=== PATIENT | female | born 1930 | race African-American/Black ===

== ENCOUNTER 2016-08-05 16:39 | Inpatient (IN) | payer MEDICARE, MEDICAID ==
[~2016-08-05] VITALS: Ht 152.4 cm; Wt 65.8 kg
[~2016-08-05 16:39] MED LIST: FOLI-43 PO; OLOP2.5D BOTHEYE; PROP1TAB PO; ROSU10TA PO; TIMO15DR12 BOTHEYE; TRAV2.5D BOTHEYE
[2016-08-05] MEDS ORDERED: MORPHINE SULFATE 4 MG/ML CPJ (NOT FOR IM USE) IV STA (17:33)
[2016-08-05] MEDS ORDERED: ONDANSETRON HCL 4MG/2ML VIAL IV STA (17:33)
[2016-08-05] MEDS ORDERED: FAMOTIDINE 20MG/2ML VIAL IV STA (17:33)
[2016-08-05] MEDS ORDERED: HYDRALAZINE (NEO) 1MG/ML IV ONE (17:45)
[2016-08-05 18:07] LABS: BASOPHILS % 0.7 % (0.0-2.0); EOSINOPHILS % 0.1 % (0.0-5.0); HEMATOCRIT. 38.1 % (36.0-48.0); HEMOGLOBIN. 12.6 g/dL (12.0-16.0); LYMPHOCYTES % 24.5 % (20.0-50.0); MEAN CORPUSCULAR HEMOGLOBIN 28.2 pg (28.0-32.0); MEAN CORPUSCULAR HGB CONC 33.1 g/dL (31.0-37.0); MEAN CORPUSCULAR VOLUME 85.3 fL (81.0-99.0); MEAN PLATELET VOLUME 10.1 fl (7.4-10.4); MONOCYTES % 7.2 % (2.0-8.0); NEUTROPHILS % 67.5 % (40.0-76.0); PLATELET 184 x1000/uL (130-400); RED BLOOD CELL COUNT 4.47 mill/uL (4.2-5.4); RED CELL DISTRIBUTION WIDTH 15.3 % (11.6-14.6); WHITE BLOOD COUNT 6.7 x1000/uL (4.5-11.0)
[2016-08-05 18:08] LABS: CLARITY URINE CLOUDY (CLEAR); COLOR URINE YELLOW (YELLOW); GLUCOSE URINE NEGATIVE (NEGATIVE); KETONES URINE 2+ (NEGATIVE); LEUKOCYTE ESTERASE URINE 2+ (NEGATIVE); NITRITE URINE NEGATIVE (NEGATIVE); OCCULT BLOOD URINE NEGATIVE (NEGATIVE); PROTEIN URINE TRACE (NEGATIVE); SPECIFIC GRAVITY URINE 1.021 (1.005-1.030); UROBILINOGEN URINE 0.2 E.U./dL (0.2-1.0)
[2016-08-05] MEDS ORDERED: HYDRALAZINE 20MG/ML VIAL IV NR (18:15)
[2016-08-05 18:17] LABS: ALBUMIN 3.1 g/dL (3.4-5.0); ANION GAP 13; CALCIUM 8.4 mg/dL (8.5-10.1); CARBON DIOXIDE 26 mEq/L (21-32); CHLORIDE 102 mEq/L (98-107); INDEX HEMOLYSI 3 (1-3); INDEX ICTERIC 1 (1-4); INDEX LIPEMIC 1 (1-3); INR 1.1; LIPASE 92 IU/L (73-393); PARTIAL THROMBOPLASTIN TIME 25.5 sec (24.0-34.0); PROTHROMBIN TIME 11.9 sec; UREA NITROGEN BLOOD 13 mg/dL (7-21)
[2016-08-05 18:18] LABS: ALANINE AMINOTRANSFERASE 19 IU/L (13-61); eGFR > 60 mL/min (>60)
[2016-08-05 18:22] LABS: TROPONIN I < 0.02 ng/mL (0.00-0.04)
[2016-08-05 18:29] LABS: BACTERIA URINE 1+; RBC URINE 0-2 /hpf (0-2); SQUAMOUS EPITHELIAL CELL URINE 1+ /lpf (RARE/1+)
[2016-08-05 18:31] LABS: TRICHOMONAS URINE FEW
[2016-08-06] VITALS (7 sets, daily range): BP systolic 113–167; BP diastolic 62–93
[2016-08-06] MEDS ORDERED: ONDANSETRON HCL 4MG/2ML VIAL IV PRN (01:30)
[2016-08-06] MEDS ORDERED: CLONIDINE 0.1MG TABLET PO PRN (01:30)
[2016-08-06] MEDS ORDERED: ACETAMINOPHEN 325MG TABLET PO PRN (01:30)
[2016-08-06] MEDS ORDERED: LEVOFLOXACIN 500MG PREMIX 100 ML IV NR ×2 (04:00→05:05)
[2016-08-06 06:03] LABS: HEMATOCRIT. 35.8 % (36.0-48.0); HEMOGLOBIN. 11.8 g/dL (12.0-16.0); MEAN CORPUSCULAR HEMOGLOBIN 28.3 pg (28.0-32.0); MEAN CORPUSCULAR HGB CONC 33.1 g/dL (31.0-37.0); MEAN CORPUSCULAR VOLUME 85.5 fL (81.0-99.0); PLATELET 167 x1000/uL (130-400); RED BLOOD CELL COUNT 4.19 mill/uL (4.2-5.4); RED CELL DISTRIBUTION WIDTH 15.3 % (11.6-14.6); WHITE BLOOD COUNT 7.6 x1000/uL (4.5-11.0)
[2016-08-06 06:33] LABS: ANION GAP 13; CALCIUM 8.2 mg/dL (8.5-10.1); CARBON DIOXIDE 26 mEq/L (21-32); CHLORIDE 102 mEq/L (98-107); INDEX HEMOLYSI 1 (1-3); INDEX ICTERIC 1 (1-4); INDEX LIPEMIC 1 (1-3); UREA NITROGEN BLOOD 14 mg/dL (7-21); eGFR > 60 mL/min (>60)
[2016-08-06 07:31] LABS: ANISOCYTOSIS 1+; PLATELET ESTIMATE NORMAL
[2016-08-06] MEDS: LACTOBACILLUS GG CAPSULE PO SCH (09:21)
[2016-08-06] MEDS: ENOXAPARIN 30MG/0.3ML SYR SUBCUT SCH (09:23)
[2016-08-06] MEDS: NEBIVOLOL HCL 5 MG TABLET PO SCH (10:00)
[2016-08-06] MEDS ORDERED: ROSU10TA PO (17:48)
[2016-08-06] MEDS ORDERED: ZOLPIDEM TARTRATE 5MG TABLET PO PRN (20:30)
[2016-08-06] MEDS ORDERED: NEBI20TA2 PO (20:36)
[2016-08-06] MEDS ORDERED: CHOL100046 PO (20:36)
[2016-08-06] MEDS: ATORVASTATIN CALCIUM 20MG TABLET PO SCH (21:21)
[2016-08-07] VITALS (7 sets, daily range): BP systolic 127–166; BP diastolic 71–98
[2016-08-07] MEDS: LEVOFLOXACIN 250MG PREMIX 50 ML IV SCH (04:55)
[2016-08-07 06:50] LABS: BASOPHILS % 0.7 % (0.0-2.0); EOSINOPHILS % 2.1 % (0.0-5.0); HEMATOCRIT. 36.8 % (36.0-48.0); HEMOGLOBIN. 12.4 g/dL (12.0-16.0); LYMPHOCYTES % 37.6 % (20.0-50.0); MEAN CORPUSCULAR HEMOGLOBIN 28.6 pg (28.0-32.0); MEAN CORPUSCULAR HGB CONC 33.7 g/dL (31.0-37.0); MEAN CORPUSCULAR VOLUME 84.7 fL (81.0-99.0); MEAN PLATELET VOLUME 9.6 fl (7.4-10.4); MONOCYTES % 14.5 % (2.0-8.0); NEUTROPHILS % 45.1 % (40.0-76.0); PLATELET 173 x1000/uL (130-400); RED BLOOD CELL COUNT 4.34 mill/uL (4.2-5.4); RED CELL DISTRIBUTION WIDTH 15.1 % (11.6-14.6); WHITE BLOOD COUNT 5.1 x1000/uL (4.5-11.0)
[2016-08-07 07:44] LABS: ANION GAP 11; CALCIUM 8.2 mg/dL (8.5-10.1); CARBON DIOXIDE 28 mEq/L (21-32); CHLORIDE 105 mEq/L (98-107); INDEX HEMOLYSI 1 (1-3); INDEX ICTERIC 1 (1-4); INDEX LIPEMIC 1 (1-3); UREA NITROGEN BLOOD 13 mg/dL (7-21); eGFR > 60 mL/min (>60)
[2016-08-07] MEDS ORDERED: MEDICATION NOT ON FORMULARY EA (Rosuvastatin Calcium (Crestor) 10 MG) PO SCH (09:00)
[2016-08-07] MEDS: NEBIVOLOL HCL 5 MG TABLET PO SCH ×2 (09:00→22:36)
[2016-08-07] MEDS: LACTOBACILLUS GG CAPSULE PO SCH (09:38)
[2016-08-07] MEDS: ENOXAPARIN 30MG/0.3ML SYR SUBCUT SCH (09:38)
[2016-08-07] MEDS: CLONIDINE 0.1MG TABLET PO PRN (17:41)
[2016-08-07] MEDS: ATORVASTATIN CALCIUM 20MG TABLET PO SCH (22:35)
[2016-08-08] VITALS: BP 124/67
[2016-08-08] MEDS: LEVOFLOXACIN 250MG PREMIX 50 ML IV SCH (03:26)
[2016-08-08 04:00] VITALS: BP 150/81
[2016-08-08] MEDS: CLONIDINE 0.1MG TABLET PO PRN (07:01)
[2016-08-08 08:08] VITALS: BP 137/91
[2016-08-08] MEDS: NEBIVOLOL HCL 5 MG TABLET PO SCH ×2 (09:00→09:47)
[2016-08-08] MEDS: LACTOBACILLUS GG CAPSULE PO SCH (09:42)
[2016-08-08] MEDS: ENOXAPARIN 30MG/0.3ML SYR SUBCUT SCH (09:48)
[2016-08-08 12:00] VITALS: BP 124/73
[2016-08-08 16:00] VITALS: BP 147/97
[2016-08-08] MEDS: CEFTRIAXONE 1 G PREMIX 50 ML IV SCH (18:25)
[2016-08-08 20:00] VITALS: BP 132/71
[2016-08-08] MEDS: ATORVASTATIN CALCIUM 20MG TABLET PO SCH (20:53)
[2016-08-09] VITALS: BP 147/87
[2016-08-09 04:00] VITALS: BP 158/98
[2016-08-09 07:23] LABS: HEMATOCRIT. 36.3 % (36.0-48.0); HEMOGLOBIN. 12.1 g/dL (12.0-16.0); MEAN CORPUSCULAR HEMOGLOBIN 28.1 pg (28.0-32.0); MEAN CORPUSCULAR HGB CONC 33.4 g/dL (31.0-37.0); MEAN CORPUSCULAR VOLUME 84.1 fL (81.0-99.0); MEAN PLATELET VOLUME 9.7 fl (7.4-10.4); PLATELET 164 x1000/uL (130-400); RED BLOOD CELL COUNT 4.32 mill/uL (4.2-5.4); RED CELL DISTRIBUTION WIDTH 15.3 % (11.6-14.6); WHITE BLOOD COUNT 4.2 x1000/uL (4.5-11.0)
[2016-08-09 07:31] LABS: CHLORIDE 103 mEq/L (98-107); INDEX HEMOLYSI 1 (1-3); INDEX ICTERIC 1 (1-4); INDEX LIPEMIC 1 (1-3)
[2016-08-09 07:36] LABS: ANION GAP 12; CARBON DIOXIDE 27 mEq/L (21-32); UREA NITROGEN BLOOD 8 mg/dL (7-21); eGFR > 60 mL/min (>60)
[2016-08-09 07:58] VITALS: BP 155/91
[2016-08-09 08:26] LABS: DIFFERENTIAL COMMENT 1
[2016-08-09] MEDS: CEFTRIAXONE 1 G PREMIX 50 ML IV SCH (08:52)
[2016-08-09] MEDS: LACTOBACILLUS GG CAPSULE PO SCH (08:54)
[2016-08-09] MEDS: ENOXAPARIN 30MG/0.3ML SYR SUBCUT SCH (08:54)
[2016-08-09] MEDS: NEBIVOLOL HCL 5 MG TABLET PO SCH (08:55)
[2016-08-09 10:48] LABS: ANISOCYTOSIS 1+; PLATELET ESTIMATE NORMAL
[2016-08-09 11:42] VITALS: BP 143/88
[2016-08-09 12:44] VITALS: BP 138/82
== END 2016-08-09 13:30 | disposition home or self-care (01) | DRG 392 ==
LOC: ER 16:39 → 6WST 18:36
PROVIDERS: ADMIT Internal Medicine; ATTEND Internal Medicine
DX: K52.9 Noninfective gastroenteritis and colitis, unspecified (principal); N39.0 Urinary tract infection, site not specified; J84.9 Interstitial pulmonary disease, unspecified; E44.0 Moderate protein-calorie malnutrition; I11.9 Hypertensive heart disease without heart failure; M06.9 Rheumatoid arthritis, unspecified; K57.90 Diverticulosis of intestine, part unspecified, without perforation or abscess without bleeding; H40.9 Unspecified glaucoma; F03.90 Unspecified dementia, unspecified severity, without behavioral disturbance, psychotic disturbance, mood disturbance, and anxiety; I51.7 Cardiomegaly; K57.30 Diverticulosis of large intestine without perforation or abscess without bleeding; N28.1 Cyst of kidney, acquired; E55.9 Vitamin D deficiency, unspecified; G43.909 Migraine, unspecified, not intractable, without status migrainosus; Z87.01 Personal history of pneumonia (recurrent); Z88.8 Allergy status to other drugs, medicaments and biological substances; Z88.0 Allergy status to penicillin
CPT/HCPCS: 36415; 71010; 74176; 80048; 80053; 81001; 83690; 84484; 85007; 85025; 85027; 85610; 85651; 85730; 87015; 87045; 87077; 87086; 87427; 87449; 87493; 89055; 93005; 96374; 96375; 97116; 97162; 99285; C1893; J0360; J0696; J1650; J1956; J2270; J2405; J3490; J7040

== ENCOUNTER 2017-07-18 15:20 | Emergency (ER) | payer MEDICARE, MEDICAID ==
[~2017-07-18] VITALS: Ht 162.6 cm; Wt 66.0 kg
[~2017-07-18 15:20] MED LIST changes: +CHOL100046 PO; -FOLI-43 PO; +NEBI20TA2 PO; -OLOP2.5D BOTHEYE; -PROP1TAB PO; -TIMO15DR12 BOTHEYE; -TRAV2.5D BOTHEYE
[2017-07-18] MEDS ORDERED: ACETAMINOPHEN 325MG TABLET PO STA (17:47)
[2017-07-18] MEDS ORDERED: HYDRALAZINE 20MG/ML VIAL IV ONE (18:00)
[2017-07-18] MEDS ORDERED: NITROGLYCERIN OINT 1GM/INCH UDPKT TD ONE (18:00)
[2017-07-18] MEDS ORDERED: ASPIRIN 81MG TABLET PO ONE (18:00)
[2017-07-18 18:25] LABS: BASOPHILS % 0.8 % (0.0-2.0); EOSINOPHILS % 3.6 % (0.0-5.0); HEMATOCRIT. 37.5 % (36.0-48.0); HEMOGLOBIN. 12.7 g/dL (12.0-16.0); LYMPHOCYTES % 29.1 % (20.0-50.0); MEAN CORPUSCULAR HEMOGLOBIN 28.6 pg (28.0-32.0); MEAN CORPUSCULAR VOLUME 84.6 fL (81.0-99.0); MONOCYTES % 9.6 % (2.0-8.0); NEUTROPHILS % 56.9 % (40.0-76.0); PLATELET 179 x1000/uL (130-400); RED BLOOD CELL COUNT 4.44 mill/uL (4.2-5.4); RED CELL DISTRIBUTION WIDTH 16.1 % (11.6-14.6)
[2017-07-18 18:41] LABS: CHLORIDE 106 mEq/L (98-107); ETHANOL BLOOD < 10 mg/dL; TROPONIN I < 0.02 ng/mL (0.00-0.04)
[2017-07-18 23:25] VITALS: BP 139/80
== END 2017-07-18 23:27 | disposition home or self-care (01) ==
LOC: ER 15:27 → CANBEDREQ 23:27
DX: R41.82 Altered mental status, unspecified (principal); G93.40 Encephalopathy, unspecified; I10 Essential (primary) hypertension; Z88.0 Allergy status to penicillin; Z79.82 Long term (current) use of aspirin; Z91.19 Patient's noncompliance with other medical treatment and regimen
CPT/HCPCS: 36415; 70450; 71045; 80053; 83036; 84484; 85025; 87070; 87430; 87804; 93005; 99285; G0482; J0360; 81003

== ENCOUNTER 2018-12-10 09:12 | Inpatient (IN) | payer MEDICARE, MEDICAID ==
[~2018-12-10] VITALS: Ht 154.9 cm; Wt 55.4 kg
[~2018-12-10 09:12] MED LIST changes: +CRES10 PO; -ROSU10TA PO
[2018-12-10] MEDS ORDERED: NITROGLYCERIN 0.4MG TABLET SL SL PRN (09:45)
[2018-12-10 10:25] LABS: BASOPHILS % 0.5 % (0.0-2.0); EOSINOPHILS % 8.2 % (0.0-5.0); HEMATOCRIT. 37.4 % (36.0-48.0); HEMOGLOBIN. 12.2 g/dL (12.0-16.0); LYMPHOCYTES % 39.8 % (20.0-50.0); MEAN CORPUSCULAR HEMOGLOBIN 26.4 pg (28.0-32.0); MEAN CORPUSCULAR VOLUME 80.6 fL (81.0-99.0); MEAN PLATELET VOLUME 8.8 fl (7.4-10.4); MONOCYTES % 11.1 % (2.0-8.0); NEUTROPHILS % 40.4 % (40.0-76.0); PLATELET 165 x1000/uL (130-400); RED BLOOD CELL COUNT 4.64 mill/uL (4.2-5.4); RED CELL DISTRIBUTION WIDTH 17.8 % (11.6-14.6)
[2018-12-10 10:33] LABS: CHLORIDE 107 mEq/L (98-107)
[2018-12-10] MEDS ORDERED: METHYLPREDNISOLONE SOD SUCC 125 MG/2 ML VIAL IV ONE (12:15)
[2018-12-10] MEDS ORDERED: IOHEXOL-350 100 ML BOTTLE ONE (13:04)
[2018-12-10] MEDS ORDERED: HYDRALAZINE 20MG/ML VIAL IV ONE (14:45)
[2018-12-10 15:15] VITALS: BP 197/113
[2018-12-10 15:34] VITALS: BP 197/113
[2018-12-10] MEDS ORDERED: ALBU18HF2 IH (16:16)
[2018-12-10] MEDS ORDERED: D-ME473S8 PO (16:16)
[2018-12-10] MEDS ORDERED: ALBU2.5V13 NEB (16:16)
[2018-12-10] MEDS ORDERED: OMEP40CA34 MT (16:16)
[2018-12-10] MEDS ORDERED: CRES10 PO (16:16)
[2018-12-10] MEDS ORDERED: CARV25TA47 PO (16:16)
[2018-12-10] MEDS ORDERED: ACETAMINOPHEN 325MG TABLET PO PRN (17:45)
[2018-12-10 20:00] VITALS: BP 161/95
[2018-12-10] MEDS ORDERED: PROMETHAZINE/DEXTROMETHORPHAN 6.25-15MG/5ML BOTTLE 120ML PO PRN (20:00)
[2018-12-10] MEDS: ATORVASTATIN CALCIUM 20MG TABLET PO SCH (20:31)
[2018-12-10] MEDS: OMEPRAZOLE 20MG CAPSULE EXTENDED RELEASE PO SCH (20:32)
[2018-12-10] MEDS: CLONIDINE 0.1MG TABLET PO PRN ×3 (20:33→20:45)
[2018-12-10] MEDS: DOCUSATE SODIUM SUGAR FREE 100MG/10ML UDC PO SCH (20:36)
[2018-12-10] MEDS: CARVEDILOL 25MG TABLET PO SCH (20:42)
[2018-12-10] MEDS ORDERED: MEDICATION NOT ON FORMULARY EA (Rosuvastatin Calcium (Crestor) 1 TAB) MT SCH (21:00)
[2018-12-10] MEDS ORDERED: CEFTRIAXONE SODIUM 1 G/VIAL IV SCH (21:45)
[2018-12-10] MEDS ORDERED: CEFTRIAXONE 1 G PREMIX 50 ML IV NR (22:00)
[2018-12-11] VITALS: BP 111/64
[2018-12-11] MEDS ORDERED: POTASSIUM CHLORIDE 20MEQ TABLET SR PO NR
[2018-12-11 04:00] VITALS: BP 124/60
[2018-12-11] MEDS: OMEPRAZOLE 20MG CAPSULE EXTENDED RELEASE PO SCH ×2 (06:43→16:25)
[2018-12-11 08:00] VITALS: BP 136/69
[2018-12-11] MEDS: CARVEDILOL 25MG TABLET PO SCH ×2 (09:00→21:00)
[2018-12-11] MEDS: ENOXAPARIN 30MG/0.3ML SYR SUBCUT SCH (09:40)
[2018-12-11] MEDS: DOCUSATE SODIUM SUGAR FREE 100MG/10ML UDC PO SCH (09:41)
[2018-12-11 10:08] LABS: BASOPHILS % 0.2 % (0.0-2.0); HEMATOCRIT. 35.2 % (36.0-48.0); HEMOGLOBIN. 11.6 g/dL (12.0-16.0); LYMPHOCYTES % 10.3 % (20.0-50.0); MEAN CORPUSCULAR HEMOGLOBIN 26.6 pg (28.0-32.0); MEAN CORPUSCULAR VOLUME 80.7 fL (81.0-99.0); MONOCYTES % 5.1 % (2.0-8.0); NEUTROPHILS % 84.4 % (40.0-76.0); PLATELET 190 x1000/uL (130-400); RED BLOOD CELL COUNT 4.37 mill/uL (4.2-5.4); RED CELL DISTRIBUTION WIDTH 17.6 % (11.6-14.6)
[2018-12-11 10:18] LABS: CHLORIDE 104 mEq/L (98-107)
[2018-12-11 10:24] LABS: PHOSPHORUS 3.1 mg/dL (2.5-4.9)
[2018-12-11 12:00] VITALS: BP 110/57
[2018-12-11 16:00] VITALS: BP 168/84
[2018-12-11] MEDS: CLONIDINE 0.1MG TABLET PO PRN (16:32)
[2018-12-11] MEDS: ALBUTEROL (0.083%) 2.5MG/3ML NEB HHN PRN ×2 (17:14→21:49)
[2018-12-11 20:00] VITALS: BP 134/68
[2018-12-11] MEDS: CEFTRIAXONE 1 G PREMIX 50 ML IV SCH (20:57)
[2018-12-11] MEDS: ATORVASTATIN CALCIUM 20MG TABLET PO SCH (21:00)
[2018-12-12] VITALS (10 sets, daily range): BP systolic 102–175; BP diastolic 60–92
[2018-12-12 06:29] LABS: BASOPHILS % 0.3 % (0.0-2.0); EOSINOPHILS % 1.1 % (0.0-5.0); HEMOGLOBIN. 10.4 g/dL (12.0-16.0); LYMPHOCYTES % 30.7 % (20.0-50.0); MEAN CORPUSCULAR VOLUME 80.1 fL (81.0-99.0); MEAN PLATELET VOLUME 9.7 fl (7.4-10.4); MONOCYTES % 8.6 % (2.0-8.0); NEUTROPHILS % 59.3 % (40.0-76.0); PLATELET 167 x1000/uL (130-400); RED BLOOD CELL COUNT 3.87 mill/uL (4.2-5.4); RED CELL DISTRIBUTION WIDTH 17.5 % (11.6-14.6)
[2018-12-12 06:36] LABS: CHLORIDE 106 mEq/L (98-107)
[2018-12-12] MEDS: FAMOTIDINE 20MG TABLET PO SCH (08:55)
[2018-12-12] MEDS: CARVEDILOL 25MG TABLET PO SCH ×2 (08:55→20:35)
[2018-12-12] MEDS: DOCUSATE SODIUM SUGAR FREE 100MG/10ML UDC PO SCH (08:56)
[2018-12-12] MEDS: ENOXAPARIN 30MG/0.3ML SYR SUBCUT SCH (08:56)
[2018-12-12 09:39] LABS: CHLORIDE 105 mEq/L (98-107)
[2018-12-12 09:44] LABS: PHOSPHORUS 3.8 mg/dL (2.5-4.9)
[2018-12-12 09:48] LABS: BASOPHILS % 0.3 % (0.0-2.0); EOSINOPHILS % 1.6 % (0.0-5.0); HEMATOCRIT. 36.1 % (36.0-48.0); LYMPHOCYTES % 26.7 % (20.0-50.0); MEAN CORPUSCULAR VOLUME 80.9 fL (81.0-99.0); MEAN PLATELET VOLUME 9.2 fl (7.4-10.4); MONOCYTES % 10.2 % (2.0-8.0); NEUTROPHILS % 61.2 % (40.0-76.0); PLATELET 182 x1000/uL (130-400); RED BLOOD CELL COUNT 4.47 mill/uL (4.2-5.4)
[2018-12-12] MEDS: CLONIDINE 0.1MG TABLET PO PRN ×2 (11:31→15:35)
[2018-12-12] MEDS: ALBUTEROL (0.083%) 2.5MG/3ML NEB HHN PRN (11:41)
[2018-12-12] MEDS ORDERED: AMLODIPINE 5MG TABLET PO NR (17:30)
[2018-12-12] MEDS: CEFTRIAXONE 1 G PREMIX 50 ML IV SCH (20:34)
[2018-12-12] MEDS: ATORVASTATIN CALCIUM 20MG TABLET PO SCH (20:35)
[2018-12-13] VITALS (7 sets, daily range): BP systolic 113–189; BP diastolic 57–103
[2018-12-13] MEDS: FAMOTIDINE 20MG TABLET PO SCH (08:20)
[2018-12-13] MEDS: CARVEDILOL 25MG TABLET PO SCH ×2 (08:20→21:05)
[2018-12-13] MEDS: DOCUSATE SODIUM SUGAR FREE 100MG/10ML UDC PO SCH (08:21)
[2018-12-13] MEDS: ENOXAPARIN 30MG/0.3ML SYR SUBCUT SCH (08:21)
[2018-12-13 10:15] LABS: BASOPHILS % 0.6 % (0.0-2.0); EOSINOPHILS % 4.3 % (0.0-5.0); HEMOGLOBIN. 11.9 g/dL (12.0-16.0); LYMPHOCYTES % 27.2 % (20.0-50.0); MEAN CORPUSCULAR HEMOGLOBIN 26.7 pg (28.0-32.0); MEAN PLATELET VOLUME 9.3 fl (7.4-10.4); MONOCYTES % 9.8 % (2.0-8.0); NEUTROPHILS % 58.1 % (40.0-76.0); PLATELET 188 x1000/uL (130-400); RED BLOOD CELL COUNT 4.44 mill/uL (4.2-5.4); RED CELL DISTRIBUTION WIDTH 17.4 % (11.6-14.6)
[2018-12-13 10:19] LABS: CHLORIDE 103 mEq/L (98-107)
[2018-12-13 10:30] LABS: PHOSPHORUS 3.5 mg/dL (2.5-4.9)
[2018-12-13] MEDS: ATORVASTATIN CALCIUM 20MG TABLET PO SCH (21:05)
[2018-12-13] MEDS: CEFTRIAXONE 1 G PREMIX 50 ML IV SCH (21:05)
[2018-12-14] VITALS: BP 158/78
[2018-12-14 04:00] VITALS: BP 190/63
[2018-12-14] MEDS: CLONIDINE 0.1MG TABLET PO PRN ×2 (04:20→15:38)
[2018-12-14 08:00] VITALS: BP 155/86
[2018-12-14] MEDS: CARVEDILOL 25MG TABLET PO SCH (08:53)
[2018-12-14] MEDS: ENOXAPARIN 30MG/0.3ML SYR SUBCUT SCH (08:53)
[2018-12-14] MEDS: FAMOTIDINE 20MG TABLET PO SCH (08:54)
[2018-12-14] MEDS: DOCUSATE SODIUM SUGAR FREE 100MG/10ML UDC PO SCH (08:59)
[2018-12-14] MEDS: ALBUTEROL (0.5%) 2.5MG/0.5ML NEB HHN SCH ×4 (09:20→17:50)
[2018-12-14 12:07] VITALS: BP 126/72
[2018-12-14 16:00] VITALS: BP 184/92
[2018-12-14] MEDS ORDERED: AMLODIPINE 5MG TABLET PO NR (19:32)
[2018-12-14 20:00] VITALS: BP 132/78
[2018-12-14] MEDS: CEFTRIAXONE 1 G PREMIX 50 ML IV SCH (20:12)
[2018-12-14] MEDS ORDERED: CARVEDILOL 12.5MG TABLET PO SCH ×2 (21:12→21:30)
[2018-12-14] MEDS: ATORVASTATIN CALCIUM 20MG TABLET PO SCH (21:21)
[2018-12-14] MEDS: AMLODIPINE 5MG TABLET PO SCH (21:22)
[2018-12-14] MEDS ORDERED: CARVEDILOL 25MG TABLET PO SCH (21:52)
[2018-12-15] VITALS: BP 168/74
[2018-12-15] MEDS: CLONIDINE 0.1MG TABLET PO PRN (00:43)
[2018-12-15 04:00] VITALS: BP 150/77
[2018-12-15 06:28] LABS: BASOPHILS % 0.5 % (0.0-2.0); EOSINOPHILS % 5.3 % (0.0-5.0); HEMATOCRIT. 32.8 % (36.0-48.0); LYMPHOCYTES % 36.1 % (20.0-50.0); MEAN CORPUSCULAR HEMOGLOBIN 26.7 pg (28.0-32.0); MEAN CORPUSCULAR VOLUME 79.5 fL (81.0-99.0); MEAN PLATELET VOLUME 9.4 fl (7.4-10.4); MONOCYTES % 10.9 % (2.0-8.0); NEUTROPHILS % 47.2 % (40.0-76.0); PLATELET 173 x1000/uL (130-400); RED BLOOD CELL COUNT 4.13 mill/uL (4.2-5.4); RED CELL DISTRIBUTION WIDTH 16.9 % (11.6-14.6)
[2018-12-15 07:17] LABS: CHLORIDE 105 mEq/L (98-107)
[2018-12-15 07:25] LABS: LDL CHOLESTEROL 85 mg/dL (5-100); PHOSPHORUS 3.8 mg/dL (2.5-4.9)
[2018-12-15 07:28] LABS: HDL CHOLESTEROL 57 mg/dL (40-59)
[2018-12-15 08:00] VITALS: BP 151/75
[2018-12-15] MEDS: FAMOTIDINE 20MG TABLET PO SCH (08:35)
[2018-12-15] MEDS: AMLODIPINE 5MG TABLET PO SCH ×2 (08:36→20:55)
[2018-12-15] MEDS: ENOXAPARIN 30MG/0.3ML SYR SUBCUT SCH (08:36)
[2018-12-15] MEDS: CARVEDILOL 12.5MG TABLET PO SCH ×2 (08:36→20:58)
[2018-12-15] MEDS: DOCUSATE SODIUM SUGAR FREE 100MG/10ML UDC PO SCH (08:37)
[2018-12-15 12:00] VITALS: BP 115/66
[2018-12-15 12:54] LABS: BG BASE EXCESS 1.1 mmol/L (-2.0-2.0); BG CARBOXYHEMOGLOBIN 0.3 % (0.5-1.5); BG DEOXYHEMOGLOBIN 6.6 % (0.0-5.0); BG HCO3 ACT 25.2 mmol/L (22.0-26.0); BG METHEMOGLOBIN 0.1 % (0.0-1.5); BG OXYGEN SATURATION 93.4 % (92.0-98.5); BG PCO2 38.2 mmHg (35.0-45.0); BG PH 7.437 (7.350-7.450); BG PO2 69.4 mmHg (75.0-100.0); BG SAMPLE SITE RIGHT RADIAL; BG TOTAL HEMOGLOBIN 11.9 g/dL (12.0-18.0); BG VENT MODE ROOM AIR
[2018-12-15] MEDS: ALBUTEROL (0.5%) 2.5MG/0.5ML NEB HHN SCH ×2 (13:45→20:55)
[2018-12-15] MEDS ORDERED: LIDOCAINE HCL/PF 1% 2ML VIAL ONE (15:56)
[2018-12-15 16:00] VITALS: BP 120/78
[2018-12-15] MEDS: ALBUTEROL (0.083%) 2.5MG/3ML NEB HHN PRN (16:32)
[2018-12-15 20:00] VITALS: BP 184/87
[2018-12-15] MEDS: CEFTRIAXONE 1 G PREMIX 50 ML IV SCH (20:27)
[2018-12-15] MEDS: ATORVASTATIN CALCIUM 20MG TABLET PO SCH (20:55)
[2018-12-16] VITALS: BP 141/74
[2018-12-16] MEDS: ALBUTEROL (0.5%) 2.5MG/0.5ML NEB HHN SCH ×3 (00:19→09:23)
[2018-12-16 04:00] VITALS: BP 151/79
[2018-12-16 07:52] VITALS: BP 163/80
[2018-12-16] MEDS: AMLODIPINE 5MG TABLET PO SCH (08:22)
[2018-12-16] MEDS: FAMOTIDINE 20MG TABLET PO SCH (08:22)
[2018-12-16] MEDS: DOCUSATE SODIUM SUGAR FREE 100MG/10ML UDC PO SCH (08:23)
[2018-12-16] MEDS: CARVEDILOL 12.5MG TABLET PO SCH (08:23)
[2018-12-16] MEDS: ENOXAPARIN 30MG/0.3ML SYR SUBCUT SCH (08:23)
[2018-12-16] MEDS: ALBUTEROL (0.083%) 2.5MG/3ML NEB HHN PRN (09:25)
[2018-12-16 12:00] VITALS: BP 109/59
[2018-12-16 12:40] VITALS: BP 109/59
== END 2018-12-16 13:50 | disposition home or self-care (01) | DRG 194 ==
LOC: ER 09:12 → EDBEDREQ 09:51 → 5WST 11:48 → EDBEDREQ 12:00 → EDBEDREQSVC 12:00 → ENRESERV 13:15
PROVIDERS: ADMIT Internal Medicine; ATTEND Internal Medicine
DX: J18.9 Pneumonia, unspecified organism (principal); J98.11 Atelectasis; I27.20 Pulmonary hypertension, unspecified; F03.90 Unspecified dementia, unspecified severity, without behavioral disturbance, psychotic disturbance, mood disturbance, and anxiety; M06.9 Rheumatoid arthritis, unspecified; E87.6 Hypokalemia; D64.9 Anemia, unspecified; G47.00 Insomnia, unspecified; I10 Essential (primary) hypertension; G43.909 Migraine, unspecified, not intractable, without status migrainosus; E55.9 Vitamin D deficiency, unspecified; R73.9 Hyperglycemia, unspecified; M05.10 Rheumatoid lung disease with rheumatoid arthritis of unspecified site; Z87.01 Personal history of pneumonia (recurrent); Z88.2 Allergy status to sulfonamides; Z88.0 Allergy status to penicillin; Z88.8 Allergy status to other drugs, medicaments and biological substances; Z79.899 Other long term (current) drug therapy
CPT/HCPCS: 36415; 36600; 71045; 71046; 71275; 74174; 80048; 80061; 82375; 82805; 82962; 83735; 83880; 84100; 84132; 84484; 85651; 93005; 93306; 93970; 94640; 96374; 97116; 97162; 97166; 97535; 99285; J0696; J1650; J2930; J3490; J7040; J7050; J7611; Q9967

== ENCOUNTER 2018-12-27 15:22 | Inpatient (IN) | payer MEDICARE, MEDICAID ==
[~2018-12-27] VITALS: Ht 165.1 cm; Wt 56.2 kg
[~2018-12-27 15:22] MED LIST changes: +ALBU18HF2 IH; +ALBU2.5V13 NEB; +CARV25TA47 PO; -CHOL100046 PO; +D-ME473S8 PO; -NEBI20TA2 PO; +OMEP40CA34 MT
[2018-12-27] MEDS ORDERED: ALBUTEROL (0.083%) 2.5MG/3ML NEB HHN STA (15:49)
[2018-12-27] MEDS ORDERED: METHYLPREDNISOLONE SOD SUCC 125 MG/2 ML VIAL IV STA (15:49)
[2018-12-27] MEDS ORDERED: IPRATROPIUM BROMIDE (0.02%) 0.5MG/2.5ML NEB HHN STA (15:49)
[2018-12-27] MEDS ORDERED: DIPHENHYDRAMINE 50MG/ML VIAL IM ONE (16:00)
[2018-12-27] MEDS ORDERED: LORAZEPAM 2MG/ML CPJ IV ONE (16:00)
[2018-12-27] MEDS ORDERED: ASPIRIN 81MG TABLET PO ONE (16:00)
[2018-12-27] MEDS ORDERED: HALOPERIDOL LACTATE 5MG/ML VIAL IM PRN (16:00)
[2018-12-27] MEDS ORDERED: MAGNESIUM 2 G PREMIX 50 ML IV ONE (16:00)
[2018-12-27 16:21] LABS: BASOPHILS % 1.3 % (0.0-2.0); EOSINOPHILS % 11.6 % (0.0-5.0); HEMATOCRIT. 35.4 % (36.0-48.0); HEMOGLOBIN. 11.9 g/dL (12.0-16.0); LYMPHOCYTES % 29.2 % (20.0-50.0); MEAN CORPUSCULAR HEMOGLOBIN 26.9 pg (28.0-32.0); MEAN CORPUSCULAR VOLUME 80.2 fL (81.0-99.0); MEAN PLATELET VOLUME 8.8 fl (7.4-10.4); MONOCYTES % 10.5 % (2.0-8.0); NEUTROPHILS % 47.4 % (40.0-76.0); PLATELET 238 x1000/uL (130-400); RED BLOOD CELL COUNT 4.42 mill/uL (4.2-5.4); RED CELL DISTRIBUTION WIDTH 17.8 % (11.6-14.6)
[2018-12-27 16:26] LABS: CHLORIDE 110 mEq/L (98-107)
[2018-12-27 16:27] LABS: INR 1.1; PROTHROMBIN TIME 11.2 sec (9.6-11.0)
[2018-12-27] MEDS ORDERED: DOXYCYCLINE HYCLATE 100 MG/VIAL IV ONE (17:45)
[2018-12-27] MEDS ORDERED: DOXYCYCLINE 100MG in DEXTROSE 5% WATER 100ML IV NR (17:47)
[2018-12-27 22:06] VITALS: BP 139/80
[2018-12-28] VITALS: BP 142/84
[2018-12-28] MEDS ORDERED: IPRATROPIUM/ALBUTEROL 0.5-3(2.5)MG/3ML NEB HHN PRN
[2018-12-28] MEDS ORDERED: AMLO5TAB88 PO (00:42)
[2018-12-28] MEDS ORDERED: OMEP20CA5 PO (00:45)
[2018-12-28] MEDS ORDERED: AZITHROMYCIN 500 MG in DEXT 5% WATER 250 ML IV SCH (00:45)
[2018-12-28] MEDS ORDERED: PROMETHAZINE/DEXTROMETHORPHAN 6.25-15MG/5ML BOTTLE 120ML PO PRN (01:15)
[2018-12-28] MEDS ORDERED: BENZONATATE 200MG CAPSULE PO NR (01:15)
[2018-12-28] MEDS: AZITHROMYCIN 500 MG in DEXT 5% WATER 250 ML IV SCH ×2 (02:28→22:21)
[2018-12-28 04:00] VITALS: BP 121/67
[2018-12-28] MEDS: IPRATROPIUM/ALBUTEROL 0.5-3(2.5)MG/3ML NEB HHN SCH ×4 (04:31→20:31)
[2018-12-28 06:18] LABS: BASOPHILS % 0.3 % (0.0-2.0); HEMATOCRIT. 32.9 % (36.0-48.0); LYMPHOCYTES % 16.8 % (20.0-50.0); MEAN CORPUSCULAR VOLUME 80.4 fL (81.0-99.0); MEAN PLATELET VOLUME 8.6 fl (7.4-10.4); MONOCYTES % 1.2 % (2.0-8.0); NEUTROPHILS % 81.7 % (40.0-76.0); PLATELET 212 x1000/uL (130-400); RED BLOOD CELL COUNT 4.09 mill/uL (4.2-5.4); RED CELL DISTRIBUTION WIDTH 17.5 % (11.6-14.6)
[2018-12-28 06:23] LABS: CHLORIDE 108 mEq/L (98-107)
[2018-12-28 06:35] LABS: PHOSPHORUS 3.5 mg/dL (2.5-4.9)
[2018-12-28 08:00] VITALS: BP 143/76
[2018-12-28] MEDS: ENOXAPARIN 40MG/0.4ML SYR SUBCUT SCH (08:57)
[2018-12-28] MEDS: OMEPRAZOLE 20MG CAPSULE EXTENDED RELEASE PO SCH (08:57)
[2018-12-28] MEDS: CARVEDILOL 12.5MG TABLET PO SCH ×2 (08:58→21:08)
[2018-12-28] MEDS: AMLODIPINE 5MG TABLET PO SCH ×2 (08:58→21:08)
[2018-12-28] MEDS ORDERED: MEDICATION NOT ON FORMULARY EA (Rosuvastatin Calcium (Crestor) 1 TAB) MT SCH (09:00)
[2018-12-28 12:00] VITALS: BP 122/73
[2018-12-28] MEDS: BENZONATATE 200MG CAPSULE PO SCH ×2 (13:17→17:04)
[2018-12-28 16:00] VITALS: BP 142/72
[2018-12-28 20:00] VITALS: BP 139/81
[2018-12-28] MEDS: ATORVASTATIN CALCIUM 10MG TABLET PO SCH (21:07)
[2018-12-29] VITALS: BP 106/64
[2018-12-29] MEDS: IPRATROPIUM/ALBUTEROL 0.5-3(2.5)MG/3ML NEB HHN SCH ×6 (00:25→20:41)
[2018-12-29] MEDS: BENZONATATE 200MG CAPSULE PO SCH ×3 (01:29→17:58)
[2018-12-29 04:00] VITALS: BP 134/71
[2018-12-29] MEDS: OMEPRAZOLE 20MG CAPSULE EXTENDED RELEASE PO SCH (06:44)
[2018-12-29 08:00] VITALS: BP 112/63
[2018-12-29] MEDS: ENOXAPARIN 40MG/0.4ML SYR SUBCUT SCH (10:01)
[2018-12-29] MEDS: AMLODIPINE 5MG TABLET PO SCH ×2 (10:02→22:00)
[2018-12-29] MEDS: CARVEDILOL 12.5MG TABLET PO SCH ×2 (10:04→22:00)
[2018-12-29 11:40] VITALS: BP 131/68
[2018-12-29 15:55] VITALS: BP 148/78
[2018-12-29 20:00] VITALS: BP 136/79
[2018-12-29] MEDS: ATORVASTATIN CALCIUM 10MG TABLET PO SCH (22:00)
[2018-12-29] MEDS: AZITHROMYCIN 500 MG in DEXT 5% WATER 250 ML IV SCH (22:06)
[2018-12-30 00:21] VITALS: BP 120/66
[2018-12-30] MEDS: IPRATROPIUM/ALBUTEROL 0.5-3(2.5)MG/3ML NEB HHN SCH ×6 (00:43→20:30)
[2018-12-30] MEDS: METHYLPREDNISOLONE SOD SUCC 40 MG/ML VIAL IV SCH ×3 (01:28→18:08)
[2018-12-30] MEDS: BENZONATATE 200MG CAPSULE PO SCH ×3 (01:28→18:04)
[2018-12-30 04:00] VITALS: BP 132/74
[2018-12-30 05:59] LABS: CHLORIDE 106 mEq/L (98-107)
[2018-12-30 06:34] LABS: BASOPHILS % 0.4 % (0.0-2.0); HEMATOCRIT. 33.2 % (36.0-48.0); LYMPHOCYTES % 19.4 % (20.0-50.0); MEAN CORPUSCULAR HEMOGLOBIN 26.7 pg (28.0-32.0); MEAN CORPUSCULAR VOLUME 80.2 fL (81.0-99.0); MEAN PLATELET VOLUME 9.3 fl (7.4-10.4); MONOCYTES % 3.4 % (2.0-8.0); NEUTROPHILS % 74.8 % (40.0-76.0); PLATELET 231 x1000/uL (130-400); RED BLOOD CELL COUNT 4.14 mill/uL (4.2-5.4); RED CELL DISTRIBUTION WIDTH 18.2 % (11.6-14.6)
[2018-12-30 08:00] VITALS: BP 142/74
[2018-12-30] MEDS: ENOXAPARIN 40MG/0.4ML SYR SUBCUT SCH (08:56)
[2018-12-30] MEDS: CARVEDILOL 12.5MG TABLET PO SCH ×2 (08:58→20:30)
[2018-12-30] MEDS: AMLODIPINE 5MG TABLET PO SCH ×2 (08:59→20:29)
[2018-12-30] MEDS: FAMOTIDINE 20MG TABLET PO SCH (08:59)
[2018-12-30 12:53] VITALS: BP 140/77
[2018-12-30 16:00] VITALS: BP 147/86
[2018-12-30 20:00] VITALS: BP 138/78
[2018-12-30] MEDS: AZITHROMYCIN 500 MG TABLET PO SCH (20:29)
[2018-12-30] MEDS: ATORVASTATIN CALCIUM 10MG TABLET PO SCH (20:30)
[2018-12-31] VITALS: BP 149/83
[2018-12-31] MEDS: IPRATROPIUM/ALBUTEROL 0.5-3(2.5)MG/3ML NEB HHN SCH ×6 (01:10→17:42)
[2018-12-31] MEDS: BENZONATATE 200MG CAPSULE PO SCH ×3 (02:00→17:00)
[2018-12-31 04:00] VITALS: BP 127/76
[2018-12-31 08:00] VITALS: BP 155/78
[2018-12-31] MEDS: METHYLPREDNISOLONE SOD SUCC 40 MG/ML VIAL IV SCH ×4 (09:31→23:43)
[2018-12-31] MEDS: AMLODIPINE 5MG TABLET PO SCH ×2 (09:31→21:15)
[2018-12-31] MEDS: FAMOTIDINE 20MG TABLET PO SCH (09:31)
[2018-12-31] MEDS: CARVEDILOL 12.5MG TABLET PO SCH ×2 (09:32→21:15)
[2018-12-31] MEDS: ENOXAPARIN 40MG/0.4ML SYR SUBCUT SCH (09:32)
[2018-12-31 12:00] VITALS: BP 134/73
[2018-12-31 16:00] VITALS: BP 130/82
[2018-12-31 20:00] VITALS: BP 131/73
[2018-12-31] MEDS: AZITHROMYCIN 500 MG TABLET PO SCH (21:15)
[2018-12-31] MEDS: ATORVASTATIN CALCIUM 10MG TABLET PO SCH (21:15)
[2019-01-01] VITALS: BP 133/64
[2019-01-01] MEDS: BENZONATATE 200MG CAPSULE PO SCH ×3 (02:00→17:04)
[2019-01-01 04:00] VITALS: BP 126/60
[2019-01-01] MEDS: IPRATROPIUM/ALBUTEROL 0.5-3(2.5)MG/3ML NEB HHN SCH ×4 (05:00→17:02)
[2019-01-01 07:29] LABS: HEMATOCRIT. 33.5 % (36.0-48.0); HEMOGLOBIN. 11.3 g/dL (12.0-16.0); MEAN CORPUSCULAR HEMOGLOBIN 27.1 pg (28.0-32.0); MEAN CORPUSCULAR VOLUME 80.4 fL (81.0-99.0); MEAN PLATELET VOLUME 9.1 fl (7.4-10.4); PLATELET 222 x1000/uL (130-400); RED BLOOD CELL COUNT 4.17 mill/uL (4.2-5.4); RED CELL DISTRIBUTION WIDTH 17.6 % (11.6-14.6)
[2019-01-01 07:53] LABS: CHLORIDE 107 mEq/L (98-107)
[2019-01-01 07:58] LABS: PHOSPHORUS 3.6 mg/dL (2.5-4.9)
[2019-01-01 08:00] VITALS: BP 134/74
[2019-01-01] MEDS: FAMOTIDINE 20MG TABLET PO SCH (08:58)
[2019-01-01] MEDS: AMLODIPINE 5MG TABLET PO SCH ×2 (08:58→21:00)
[2019-01-01] MEDS: CARVEDILOL 12.5MG TABLET PO SCH ×2 (08:58→21:00)
[2019-01-01] MEDS: METHYLPREDNISOLONE SOD SUCC 40 MG/ML VIAL IV SCH ×2 (08:59→15:46)
[2019-01-01] MEDS: ENOXAPARIN 40MG/0.4ML SYR SUBCUT SCH (08:59)
[2019-01-01 09:19] LABS: PLATELET ESTIMATE NORMAL
[2019-01-01 12:00] VITALS: BP 127/70
[2019-01-01] MEDS ORDERED: LACTULOSE 20G/30ML UDC PO SCH (13:00)
[2019-01-01 16:51] VITALS: BP 144/80
[2019-01-01] MEDS: DOCUSATE SODIUM 100MG CAPSULE PO SCH (17:04)
[2019-01-01 19:57] VITALS: BP 114/57
[2019-01-01] MEDS: POLYETHYLENE GLYCOL 3350 (17GM) 1 DOSE PACK PO SCH (21:00)
[2019-01-01] MEDS: AZITHROMYCIN 500 MG TABLET PO SCH (21:18)
[2019-01-01] MEDS: ATORVASTATIN CALCIUM 10MG TABLET PO SCH (21:18)
[2019-01-02] VITALS: BP 121/70
[2019-01-02] MEDS: IPRATROPIUM/ALBUTEROL 0.5-3(2.5)MG/3ML NEB HHN SCH ×6 (00:15→16:44)
[2019-01-02] MEDS: METHYLPREDNISOLONE SOD SUCC 40 MG/ML VIAL IV SCH ×3 (00:49→17:33)
[2019-01-02] MEDS: BENZONATATE 200MG CAPSULE PO SCH ×3 (00:49→17:32)
[2019-01-02 04:00] VITALS: BP 127/81
[2019-01-02 08:00] VITALS: BP 141/80
[2019-01-02] MEDS: FAMOTIDINE 20MG TABLET PO SCH (08:59)
[2019-01-02] MEDS: AMLODIPINE 5MG TABLET PO SCH ×2 (09:02→21:15)
[2019-01-02] MEDS: CARVEDILOL 12.5MG TABLET PO SCH ×2 (09:02→21:15)
[2019-01-02] MEDS: DOCUSATE SODIUM 100MG CAPSULE PO SCH ×2 (09:02→17:32)
[2019-01-02] MEDS: ENOXAPARIN 40MG/0.4ML SYR SUBCUT SCH (09:03)
[2019-01-02 12:00] VITALS: BP 135/72
[2019-01-02 16:00] VITALS: BP 134/71
[2019-01-02] MEDS ORDERED: PREDNISONE 20MG TABLET PO NR (19:59)
[2019-01-02 20:00] VITALS: BP 144/93
[2019-01-02] MEDS: POLYETHYLENE GLYCOL 3350 (17GM) 1 DOSE PACK PO SCH (21:15)
[2019-01-02] MEDS: ATORVASTATIN CALCIUM 10MG TABLET PO SCH (21:15)
[2019-01-02] MEDS: AZITHROMYCIN 500 MG TABLET PO SCH (21:15)
[2019-01-03] VITALS: BP 137/74
[2019-01-03] MEDS: IPRATROPIUM/ALBUTEROL 0.5-3(2.5)MG/3ML NEB HHN SCH ×3 (02:53→16:15)
[2019-01-03 04:00] VITALS: BP 132/78
[2019-01-03] MEDS: BENZONATATE 200MG CAPSULE PO SCH ×2 (05:00→09:41)
[2019-01-03 06:56] LABS: BASOPHILS % 0.1 % (0.0-2.0); HEMATOCRIT. 34.1 % (36.0-48.0); HEMOGLOBIN. 11.5 g/dL (12.0-16.0); LYMPHOCYTES % 8.9 % (20.0-50.0); MEAN CORPUSCULAR VOLUME 80.1 fL (81.0-99.0); MEAN PLATELET VOLUME 9.4 fl (7.4-10.4); MONOCYTES % 3.7 % (2.0-8.0); NEUTROPHILS % 87.3 % (40.0-76.0); PLATELET 213 x1000/uL (130-400); RED BLOOD CELL COUNT 4.26 mill/uL (4.2-5.4); RED CELL DISTRIBUTION WIDTH 17.3 % (11.6-14.6)
[2019-01-03 07:52] LABS: CHLORIDE 106 mEq/L (98-107)
[2019-01-03 08:00] VITALS: BP 139/84
[2019-01-03] MEDS ORDERED: PREDNISONE 20MG TABLET PO SCH (09:00)
[2019-01-03] MEDS: CARVEDILOL 12.5MG TABLET PO SCH (09:41)
[2019-01-03] MEDS: AMLODIPINE 5MG TABLET PO SCH (09:41)
[2019-01-03] MEDS: DOCUSATE SODIUM 100MG CAPSULE PO SCH (09:41)
[2019-01-03] MEDS: ENOXAPARIN 40MG/0.4ML SYR SUBCUT SCH (09:43)
[2019-01-03 12:00] VITALS: BP 135/78
[2019-01-03] MEDS ORDERED: PRED5TAB MT (15:48)
[2019-01-03 16:14] VITALS: BP 135/78
== END 2019-01-03 17:13 | disposition home or self-care (01) | DRG 202 ==
LOC: ER 15:22 → EDBEDREQ 16:13 → 7WST 17:46 → EDBEDREQ 17:48 → ENRESERV 21:19 → 6WST 01-02 20:16
PROVIDERS: ADMIT Internal Medicine; ATTEND Internal Medicine
DX: J45.901 Unspecified asthma with (acute) exacerbation (principal); J84.9 Interstitial pulmonary disease, unspecified; J44.0 Chronic obstructive pulmonary disease with (acute) lower respiratory infection; I47.2 Ventricular tachycardia; E78.5 Hyperlipidemia, unspecified; F03.90 Unspecified dementia, unspecified severity, without behavioral disturbance, psychotic disturbance, mood disturbance, and anxiety; H26.9 Unspecified cataract; I10 Essential (primary) hypertension; I27.20 Pulmonary hypertension, unspecified; M05.10 Rheumatoid lung disease with rheumatoid arthritis of unspecified site; D64.9 Anemia, unspecified; E78.00 Pure hypercholesterolemia, unspecified; K21.9 Gastro-esophageal reflux disease without esophagitis; K57.90 Diverticulosis of intestine, part unspecified, without perforation or abscess without bleeding; K59.00 Constipation, unspecified; R26.9 Unspecified abnormalities of gait and mobility; G43.909 Migraine, unspecified, not intractable, without status migrainosus; R00.2 Palpitations; J32.9 Chronic sinusitis, unspecified; R35.1 Nocturia; R21 Rash and other nonspecific skin eruption; Z82.49 Family history of ischemic heart disease and other diseases of the circulatory system; Z87.891 Personal history of nicotine dependence; Z87.01 Personal history of pneumonia (recurrent); Z79.899 Other long term (current) drug therapy; Z88.0 Allergy status to penicillin; Z88.2 Allergy status to sulfonamides; Z90.710 Acquired absence of both cervix and uterus; Z88.8 Allergy status to other drugs, medicaments and biological substances
CPT/HCPCS: 36415; 71045; 71046; 71250; 80048; 83605; 83735; 83880; 84100; 84484; 85651; 87070; 92523; 93005; 93306; 94640; 96365; 96375; 97162; 97166; 99285; J0456; J1200; J1630; J1650; J2060; J2920; J2930; J3475; J3490; J7050; J7060; J7512; J7611; J7620

== ENCOUNTER 2019-03-24 15:27 | Inpatient (IN) | payer MEDICARE, MEDICAID ==
[~2019-03-24] VITALS: Ht 160 cm; Wt 60.9 kg
[~2019-03-24 15:27] MED LIST changes: +AMLO5TAB88 PO; +OMEP20CA5 PO; -OMEP40CA34 MT; +PRED5TAB MT
[2019-03-24 18:47] LABS: BASOPHILS % 0.7 % (0.0-2.0); EOSINOPHILS % 7.7 % (0.0-5.0); HEMATOCRIT. 36.5 % (36.0-48.0); HEMOGLOBIN. 11.9 g/dL (12.0-16.0); LYMPHOCYTES % 32.4 % (20.0-50.0); MEAN CORPUSCULAR HEMOGLOBIN 26.5 pg (28.0-32.0); MEAN CORPUSCULAR VOLUME 81.3 fL (81.0-99.0); MEAN PLATELET VOLUME 8.3 fl (7.4-10.4); NEUTROPHILS % 50.2 % (40.0-76.0); PLATELET 192 x1000/uL (130-400); RED BLOOD CELL COUNT 4.49 mill/uL (4.2-5.4); RED CELL DISTRIBUTION WIDTH 17.7 % (11.6-14.6)
[2019-03-24 18:54] LABS: CHLORIDE 109 mEq/L (98-107)
[2019-03-24 18:58] LABS: ETHANOL BLOOD < 10 mg/dL
[2019-03-24 19:27] LABS: CLARITY URINE CLEAR (CLEAR); COLOR URINE YELLOW (YELLOW); KETONES URINE NEGATIVE (NEGATIVE); LEUKOCYTE ESTERASE URINE TRACE (NEGATIVE); NITRITE URINE NEGATIVE (NEGATIVE); OCCULT BLOOD URINE NEGATIVE (NEGATIVE); PROTEIN URINE NEGATIVE (NEGATIVE); SPECIFIC GRAVITY URINE 1.014 (1.005-1.030)
[2019-03-24 19:41] LABS: *AMPHETAMINES SCREEN URINE NEGATIVE (NEGATIVE); *BARBITURATES SCREEN URINE NEGATIVE (NEGATIVE); *BENZODIAZEPINES SCREEN URINE NEGATIVE (NEGATIVE); *COCAINE SCREEN URINE NEGATIVE (NEGATIVE); CANNABINOID URINE SCREEN NEGATIVE (NEGATIVE); METHADONE URINE SCREEN NEGATIVE (NEGATIVE); OPIATES URINE SCREEN NEGATIVE (NEGATIVE); PHENCYCLIDINE URINE SCREEN NEGATIVE (NEGATIVE)
[2019-03-24] MEDS ORDERED: CEFTRIAXONE 1 G PREMIX 50 ML IV NR (20:30)
[2019-03-24 21:30] VITALS: BP_SYST 132; BP_DIAS 63; BP_DIAS 82
[2019-03-24] MEDS ORDERED: BENZONATATE 100MG CAPSULE PO PRN (23:30)
[2019-03-24] MEDS ORDERED: ZOLPIDEM TARTRATE 5MG TABLET PO PRN (23:30)
[2019-03-24] MEDS ORDERED: GUAIFENESIN-DM 200MG-20MG/10ML UDC PO PRN (23:30)
[2019-03-25] VITALS: BP 117/72
[2019-03-25] MEDS: ALBUTEROL (0.083%) 2.5MG/3ML NEB HHN SCH ×6 (00:29→21:08)
[2019-03-25] MEDS: METHYLPREDNISOLONE SOD SUCC 40 MG/ML VIAL IV SCH ×4 (00:48→21:51)
[2019-03-25] MEDS: LEVOFLOXACIN 500MG PREMIX 100 ML IV SCH (00:48)
[2019-03-25 04:00] VITALS: BP 131/68
[2019-03-25 08:00] VITALS: BP 126/74
[2019-03-25] MEDS: AMLODIPINE 5MG TABLET PO SCH ×2 (08:22→21:51)
[2019-03-25] MEDS: CARVEDILOL 12.5MG TABLET PO SCH ×2 (08:22→21:51)
[2019-03-25] MEDS: ENOXAPARIN 40MG/0.4ML SYR SUBCUT SCH (08:23)
[2019-03-25] MEDS ORDERED: MEDICATION NOT ON FORMULARY EA (Carvedilol 25 MG) PO SCH (09:00)
[2019-03-25] MEDS ORDERED: FUROSEMIDE 20MG/2ML VIAL IVP SCH (09:00)
[2019-03-25 12:00] VITALS: BP 103/58
[2019-03-25] MEDS: BENZONATATE 100MG CAPSULE PO SCH ×2 (14:29→21:50)
[2019-03-25 16:00] VITALS: BP 111/58
[2019-03-25 20:00] VITALS: BP 114/63
[2019-03-25] MEDS ORDERED: MEDICATION NOT ON FORMULARY EA (Rosuvastatin Calcium (Crestor) 10 MG) PO SCH (21:00)
[2019-03-25] MEDS: ATORVASTATIN CALCIUM 20MG TABLET PO SCH (21:50)
[2019-03-26] VITALS: BP 142/74
[2019-03-26] MEDS: LEVOFLOXACIN 500MG PREMIX 100 ML IV SCH (00:14)
[2019-03-26] MEDS: ALBUTEROL (0.083%) 2.5MG/3ML NEB HHN SCH ×6 (01:00→23:47)
[2019-03-26 04:00] VITALS: BP 155/73
[2019-03-26] MEDS: METHYLPREDNISOLONE SOD SUCC 40 MG/ML VIAL IV SCH ×2 (05:59→13:06)
[2019-03-26] MEDS: BENZONATATE 100MG CAPSULE PO SCH ×2 (05:59→13:06)
[2019-03-26 08:00] VITALS: BP 130/63
[2019-03-26] MEDS: CARVEDILOL 12.5MG TABLET PO SCH (09:18)
[2019-03-26] MEDS: AMLODIPINE 5MG TABLET PO SCH (09:18)
[2019-03-26] MEDS: ENOXAPARIN 40MG/0.4ML SYR SUBCUT SCH (09:21)
[2019-03-26 12:23] VITALS: BP 108/60
[2019-03-26] MEDS ORDERED: ZOLPIDEM TARTRATE 5MG TABLET PO PRN ×2 (12:45→13:30)
[2019-03-26 16:19] VITALS: BP 143/80
[2019-03-26 20:10] VITALS: BP 159/89
[2019-03-26 20:43] LABS: HEMATOCRIT. 36.3 % (36.0-48.0); MEAN CORPUSCULAR HEMOGLOBIN 26.5 pg (28.0-32.0); MEAN CORPUSCULAR VOLUME 80.2 fL (81.0-99.0); MEAN PLATELET VOLUME 8.7 fl (7.4-10.4); PLATELET 231 x1000/uL (130-400); RED BLOOD CELL COUNT 4.52 mill/uL (4.2-5.4); RED CELL DISTRIBUTION WIDTH 17.8 % (11.6-14.6)
[2019-03-26 20:52] LABS: CHLORIDE 104 mEq/L (98-107)
[2019-03-26] MEDS ORDERED: DIPHENHYDRAMINE 50MG CAPSULE PO SCH (21:00)
[2019-03-27 00:35] VITALS: BP 139/74
[2019-03-27] MEDS: ATORVASTATIN CALCIUM 20MG TABLET PO SCH (02:48)
[2019-03-27] MEDS: CARVEDILOL 12.5MG TABLET PO SCH ×2 (02:49→09:37)
[2019-03-27] MEDS: AMLODIPINE 5MG TABLET PO SCH ×2 (02:50→09:37)
[2019-03-27] MEDS: BENZONATATE 100MG CAPSULE PO SCH ×3 (02:51→15:03)
[2019-03-27 04:00] VITALS: BP 140/75
[2019-03-27] MEDS: ALBUTEROL (0.083%) 2.5MG/3ML NEB HHN SCH ×4 (04:20→15:57)
[2019-03-27 07:02] LABS: PLATELET ESTIMATE NORMAL
[2019-03-27 08:00] VITALS: BP 147/81
[2019-03-27] MEDS: ENOXAPARIN 40MG/0.4ML SYR SUBCUT SCH (09:38)
[2019-03-27] MEDS ORDERED: LEVOFLOXACIN 500MG TABLET PO SCH (11:00)
[2019-03-27 12:00] VITALS: BP 116/68
[2019-03-27 16:00] VITALS: BP 121/67
[2019-03-27 20:13] VITALS: BP 139/72
== END 2019-03-27 20:45 | disposition home or self-care (01) | DRG 197 ==
LOC: ER 15:55 → 6WST 19:21 → EDBEDREQ 19:36 → EDBEDREQTM 19:36 → ENRESERV 20:42 → 6WST 03-26 04:39
PROVIDERS: ADMIT Internal Medicine; ATTEND Internal Medicine
DX: J84.9 Interstitial pulmonary disease, unspecified (principal); J45.901 Unspecified asthma with (acute) exacerbation; J44.9 Chronic obstructive pulmonary disease, unspecified; M06.9 Rheumatoid arthritis, unspecified; I10 Essential (primary) hypertension; E78.5 Hyperlipidemia, unspecified; E78.00 Pure hypercholesterolemia, unspecified; F03.90 Unspecified dementia, unspecified severity, without behavioral disturbance, psychotic disturbance, mood disturbance, and anxiety; G43.909 Migraine, unspecified, not intractable, without status migrainosus; K57.90 Diverticulosis of intestine, part unspecified, without perforation or abscess without bleeding; Z88.0 Allergy status to penicillin; Z87.01 Personal history of pneumonia (recurrent); Z86.14 Personal history of Methicillin resistant Staphylococcus aureus infection; Z90.710 Acquired absence of both cervix and uterus; Z88.8 Allergy status to other drugs, medicaments and biological substances; Z79.899 Other long term (current) drug therapy
CPT/HCPCS: 36415; 71045; 76830; 76856; 80048; 80305; 80320; 81003; 82140; 83605; 83880; 84484; 93005; 94640; 96365; 99285; J0696; J1650; J1940; J1956; J2920; J7611; Q0163; G0480

== ENCOUNTER 2020-10-15 14:49 | Inpatient (IN) | payer MEDICARE, MEDICAID ==
[~2020-10-15] VITALS: Ht 162.6 cm; Wt 49.9 kg
[~2020-10-15 14:49] MED LIST changes: +OMEP20CA14 PO; -OMEP20CA5 PO; -PRED5TAB MT
[2020-10-15 15:31] LABS: HEMATOCRIT. 32.4 % (36.0-48.0); HEMOGLOBIN. 10.8 g/dL (12.0-16.0); MEAN CORPUSCULAR VOLUME 83.5 fL (81.0-99.0); MEAN PLATELET VOLUME 8.6 fl (7.4-10.4); PLATELET 161 x1000/uL (130-400); RED BLOOD CELL COUNT 3.88 mill/uL (4.2-5.4); RED CELL DISTRIBUTION WIDTH 16.7 % (11.6-14.6)
[2020-10-15 15:38] LABS: CHLORIDE 106 mEq/L (98-107)
[2020-10-15 15:41] LABS: INR 1.1; PROTHROMBIN TIME 11.6 sec (9.6-11.0)
[2020-10-15 16:14] LABS: PLATELET ESTIMATE NORMAL
[2020-10-15 16:31] LABS: CLARITY URINE CLOUDY (CLEAR); COLOR URINE YELLOW (YELLOW); KETONES URINE NEGATIVE (NEGATIVE); LEUKOCYTE ESTERASE URINE TRACE (NEGATIVE); NITRITE URINE POSITIVE (NEGATIVE); OCCULT BLOOD URINE NEGATIVE (NEGATIVE); PH URINE 7.5 (4.5-8.0); PROTEIN URINE 1+ (NEGATIVE)
[2020-10-15] MEDS ORDERED: LEVOFLOXACIN 750MG PREMIX 150 ML IV ONE (17:00)
[2020-10-15] MEDS ORDERED: ONDANSETRON HCL 4MG/2ML INJ IV PRN (18:00)
[2020-10-15] MEDS ORDERED: MAGNESIUM/ALUMINUM HYDROXIDE/SIMETHICONE 30ML UDC PO PRN (18:00)
[2020-10-15] MEDS ORDERED: GUAIFENESIN 200MG/10ML SUGAR FREE UDC PO PRN (18:00)
[2020-10-15] MEDS ORDERED: CLONIDINE 0.1MG TABLET PO PRN (18:00)
[2020-10-15] MEDS ORDERED: DOCUSATE SODIUM 100MG CAPSULE PO PRN (18:00)
[2020-10-15] MEDS ORDERED: ACETAMINOPHEN 325MG TABLET PO PRN (18:00)
[2020-10-15] MEDS: ENOXAPARIN 30MG/0.3ML SYR SUBCUT SCH (19:04)
[2020-10-15] MEDS: SODIUM CHLORIDE 0.45% 1,000 ML IV SCH (19:08)
[2020-10-15 21:20] VITALS: BP 166/87
[2020-10-16] VITALS: BP 115/68
[2020-10-16 04:00] VITALS: BP 131/77
[2020-10-16 06:16] LABS: BASOPHILS % 0.2 % (0.0-2.0); EOSINOPHILS % 0.1 % (0.0-5.0); HEMATOCRIT. 34.2 % (36.0-48.0); HEMOGLOBIN. 11.1 g/dL (12.0-16.0); LYMPHOCYTES % 8.6 % (20.0-50.0); MEAN CORPUSCULAR HEMOGLOBIN 27.3 pg (28.0-32.0); MEAN CORPUSCULAR VOLUME 84.2 fL (81.0-99.0); MEAN PLATELET VOLUME 8.8 fl (7.4-10.4); NEUTROPHILS % 85.1 % (40.0-76.0); PLATELET 169 x1000/uL (130-400); RED BLOOD CELL COUNT 4.06 mill/uL (4.2-5.4); RED CELL DISTRIBUTION WIDTH 17.2 % (11.6-14.6)
[2020-10-16 06:31] LABS: CHLORIDE 106 mEq/L (98-107)
[2020-10-16 08:00] VITALS: BP 163/85
[2020-10-16] MEDS: MULTIVITAMINS,THER W-MINERALS TABLET PO SCH (09:40)
[2020-10-16] MEDS: SODIUM CHLORIDE 0.45% 1,000 ML IV SCH (10:12)
[2020-10-16 12:00] VITALS: BP 157/81
[2020-10-16 16:00] VITALS: BP 146/75
[2020-10-16] MEDS: ENOXAPARIN 30MG/0.3ML SYR SUBCUT SCH (18:45)
[2020-10-16 20:00] VITALS: BP 150/86
[2020-10-16] MEDS: AMLODIPINE 5MG TABLET PO SCH (21:00)
[2020-10-17] VITALS: BP_SYST 196; BP_SYST 205; BP_DIAS 105; BP_DIAS 99
[2020-10-17] MEDS: HYDRALAZINE 20MG/ML VIAL IV PRN ×2 (00:25→07:00)
[2020-10-17] MEDS: SODIUM CHLORIDE 0.45% 1,000 ML IV SCH (03:20)
[2020-10-17 04:00] VITALS: BP 160/92
[2020-10-17] MEDS ORDERED: LORAZEPAM 2MG/ML CPJ IV PRN (06:45)
[2020-10-17 08:00] VITALS: BP 123/75
[2020-10-17] MEDS ORDERED: CLONIDINE HCL 0.2MG/24HR PATCH TD SCH (09:00)
[2020-10-17] MEDS: AMLODIPINE 5MG TABLET PO SCH ×2 (09:40→20:45)
[2020-10-17] MEDS: MULTIVITAMINS,THER W-MINERALS TABLET PO SCH (09:41)
[2020-10-17] MEDS: OMEPRAZOLE 20MG CAPSULE EXTENDED RELEASE PO SCH (09:41)
[2020-10-17 12:00] VITALS: BP 127/77
[2020-10-17] MEDS ORDERED: AMIKACIN 500MG in SODIUM CHLORIDE 0.9% 100ML IV SCH (14:30)
[2020-10-17 16:00] VITALS: BP 151/86
[2020-10-17] MEDS ORDERED: LEVOFLOXACIN 500MG PREMIX 100 ML IV SCH (17:00)
[2020-10-17] MEDS: CEFEPIME 1,000 MG in DEXTROSE 5% WATER 50 ML IV SCH (17:33)
[2020-10-17] MEDS: ENOXAPARIN 30MG/0.3ML SYR SUBCUT SCH (17:43)
[2020-10-17 20:00] VITALS: BP 145/82
[2020-10-17] MEDS: CARVEDILOL 12.5MG TABLET PO SCH (20:45)
[2020-10-18] VITALS: BP 119/70
[2020-10-18 04:00] VITALS: BP 140/84
[2020-10-18] MEDS: CEFEPIME 1,000 MG in DEXTROSE 5% WATER 50 ML IV SCH (05:38)
[2020-10-18 06:40] LABS: BASOPHILS % 0.4 % (0.0-2.0); EOSINOPHILS % 1.3 % (0.0-5.0); HEMATOCRIT. 36.9 % (36.0-48.0); HEMOGLOBIN. 12.2 g/dL (12.0-16.0); LYMPHOCYTES % 21.9 % (20.0-50.0); MEAN CORPUSCULAR HEMOGLOBIN 28.2 pg (28.0-32.0); MEAN CORPUSCULAR VOLUME 85.1 fL (81.0-99.0); NEUTROPHILS % 63.4 % (40.0-76.0); PLATELET 140 x1000/uL (130-400); RED BLOOD CELL COUNT 4.34 mill/uL (4.2-5.4); RED CELL DISTRIBUTION WIDTH 17.5 % (11.6-14.6)
[2020-10-18 06:58] LABS: CHLORIDE 106 mEq/L (98-107)
[2020-10-18 08:00] VITALS: BP 135/87
[2020-10-18] MEDS: OMEPRAZOLE 20MG CAPSULE EXTENDED RELEASE PO SCH (09:34)
[2020-10-18] MEDS: CARVEDILOL 12.5MG TABLET PO SCH ×2 (09:34→20:49)
[2020-10-18] MEDS: MULTIVITAMINS,THER W-MINERALS TABLET PO SCH (09:34)
[2020-10-18] MEDS: AMLODIPINE 5MG TABLET PO SCH ×2 (09:34→20:49)
[2020-10-18] MEDS ORDERED: IPRATROPIUM/ALBUTEROL 0.5-3(2.5)MG/3ML NEB HHN PRN (10:00)
[2020-10-18] MEDS ORDERED: POTASSIUM CHLORIDE 20MEQ TABLET SR PO NR (10:18)
[2020-10-18 12:00] VITALS: BP 147/80
[2020-10-18] MEDS ORDERED: LIDOCAINE HCL 1% 20ML VIAL (Pyxis) INJ ONE (14:02)
[2020-10-18 16:00] VITALS: BP 114/72
[2020-10-18] MEDS: CEFTRIAXONE 1,000 MG in DEXTROSE 5% WATER 50 ML IV SCH (18:09)
[2020-10-18] MEDS: ENOXAPARIN 30MG/0.3ML SYR SUBCUT SCH (18:09)
[2020-10-18 20:00] VITALS: BP 119/74
[2020-10-19] VITALS (7 sets, daily range): BP systolic 91–160; BP diastolic 61–97
[2020-10-19 06:29] LABS: CHLORIDE 108 mEq/L (98-107)
[2020-10-19] MEDS: AMLODIPINE 5MG TABLET PO SCH (08:43)
[2020-10-19] MEDS: CARVEDILOL 12.5MG TABLET PO SCH (08:43)
[2020-10-19] MEDS ORDERED: FAMOTIDINE 20MG TABLET PO SCH (09:00)
[2020-10-19] MEDS: MULTIVITAMINS,THER W-MINERALS TABLET PO SCH (09:01)
[2020-10-19] MEDS: CEFTRIAXONE 1,000 MG in DEXTROSE 5% WATER 50 ML IV SCH (16:12)
[2020-10-19] MEDS: ENOXAPARIN 30MG/0.3ML SYR SUBCUT SCH (17:46)
== END 2020-10-19 18:01 | disposition home health service (06) | DRG 872 ==
LOC: ER 14:49 → 5WST 17:31 → ENRESERV 20:08
PROVIDERS: ADMIT Hospitalist; ATTEND Hospitalist
PROC: 02HV33Z Insertion of Infusion Device into Superior Vena Cava, Percutaneous Approach (ICD-10-PCS; principal; 2020-10-18)
PROC: B5181ZA Fluoroscopy of Superior Vena Cava using Low Osmolar Contrast, Guidance (ICD-10-PCS; 2020-10-18)
PROC: B548ZZA Ultrasonography of Superior Vena Cava, Guidance (ICD-10-PCS; 2020-10-18)
DX: A41.51 Sepsis due to Escherichia coli [E. coli] (principal); N39.0 Urinary tract infection, site not specified; E44.1 Mild protein-calorie malnutrition; Z16.23 Resistance to quinolones and fluoroquinolones; Z68.1 Body mass index [BMI] 19.9 or less, adult; I11.0 Hypertensive heart disease with heart failure; I50.9 Heart failure, unspecified; R62.7 Adult failure to thrive; Z90.710 Acquired absence of both cervix and uterus; Z87.01 Personal history of pneumonia (recurrent); Z88.0 Allergy status to penicillin; Z88.8 Allergy status to other drugs, medicaments and biological substances; F03.90 Unspecified dementia, unspecified severity, without behavioral disturbance, psychotic disturbance, mood disturbance, and anxiety; M06.9 Rheumatoid arthritis, unspecified; Z20.822 Contact with and (suspected) exposure to COVID-19; Z86.718 Personal history of other venous thrombosis and embolism; G90.8 Other disorders of autonomic nervous system
CPT/HCPCS: 36415; 36573; 71045; 80048; 80053; 81003; 83605; 83735; 84145; 84484; 85025; 87077; 87186; 87426; 93005; 93970; 94640; 97116; 97162; 97530; 99285; C1725; C1769; J0278; J0360; J0692; J0696; J1650; J1956; J2060; J3490; J7050; J7060

== ENCOUNTER 2020-12-12 12:25 | Emergency (ER) | payer MEDICARE, MEDICAID ==
[~2020-12-12] VITALS: Ht 152.4 cm; Wt 46.0 kg
[2020-12-12] MEDS ORDERED: MORPHINE SULFATE 2 MG/ML CPJ (NOT FOR IM USE) IV ONE (13:00)
[2020-12-12 13:26] LABS: BASOPHILS % 0.5 % (0.0-2.0); EOSINOPHILS % 2.2 % (0.0-5.0); HEMATOCRIT. 36.7 % (36.0-48.0); HEMOGLOBIN. 12.6 g/dL (12.0-16.0); LYMPHOCYTES % 9.6 % (20.0-50.0); MEAN CORPUSCULAR HEMOGLOBIN 28.9 pg (28.0-32.0); MEAN CORPUSCULAR VOLUME 84.1 fL (81.0-99.0); MEAN PLATELET VOLUME 8.8 fl (7.4-10.4); MONOCYTES % 7.1 % (2.0-8.0); NEUTROPHILS % 80.6 % (40.0-76.0); PLATELET 169 x1000/uL (130-400); RED BLOOD CELL COUNT 4.36 mill/uL (4.2-5.4); RED CELL DISTRIBUTION WIDTH 16.6 % (11.6-14.6)
[2020-12-12 13:29] LABS: CHLORIDE 107 mEq/L (98-107)
[2020-12-12] MEDS ORDERED: SODIUM CHLORIDE IV SCH (13:45)
[2020-12-12] MEDS ORDERED: ROPIVACAINE HCL IV SCH (13:45)
[2020-12-12] MEDS ORDERED: ROPIVACAINE HCL MC SCH (14:00)
[2020-12-12] MEDS ORDERED: LIDOCAINE HCL 1% 20ML VIAL (Pyxis) INJ INFIL ONE (14:00)
[2020-12-12] MEDS ORDERED: WATER FOR INJECTION STERILE MC SCH (14:00)
[2020-12-12] MEDS ORDERED: CONTAINER EMPTY MC SCH (14:00)
[2020-12-12] MEDS ORDERED: OXYCODONE HCL 5MG TABLET PO ONE (15:00)
[2020-12-12] MEDS ORDERED: ACETAMINOPHEN 325MG TABLET PO ONE (15:00)
[2020-12-12 15:14] LABS: CLARITY URINE CLEAR (CLEAR); COLOR URINE YELLOW (YELLOW); KETONES URINE NEGATIVE (NEGATIVE); LEUKOCYTE ESTERASE URINE 1+ (NEGATIVE); NITRITE URINE NEGATIVE (NEGATIVE); OCCULT BLOOD URINE NEGATIVE (NEGATIVE); PROTEIN URINE NEGATIVE (NEGATIVE); UROBILINOGEN URINE 0.2 E.U./dL (0.2-1.0)
[2020-12-12] MEDS ORDERED: CEPH500C2 MT (15:40)
[2020-12-12] MEDS ORDERED: CEPHALEXIN 250MG CAPSULE PO NR (16:00)
[2020-12-12 16:51] VITALS: BP 195/94
== END 2020-12-12 16:54 | disposition home or self-care (01) ==
LOC: ER 12:25
DX: M25.552 Pain in left hip (principal); N39.0 Urinary tract infection, site not specified; M19.90 Unspecified osteoarthritis, unspecified site; I11.0 Hypertensive heart disease with heart failure; I50.9 Heart failure, unspecified; Z90.710 Acquired absence of both cervix and uterus; Z88.8 Allergy status to other drugs, medicaments and biological substances; Z88.0 Allergy status to penicillin; W01.0XXA Fall on same level from slipping, tripping and stumbling without subsequent striking against object, initial encounter; Y93.89 Activity, other specified; Y92.018 Other place in single-family (private) house as the place of occurrence of the external cause
CPT/HCPCS: 36415; 70450; 71045; 72125; 72192; 73502; 73700; 80053; 81003; 83880; 85025; 96374; 99285; J2270; J2795; J7060